=== PATIENT | male | born 1945 | race Caucasian/White ===

== ENCOUNTER → 2016-10-03 | Day surgery (SDC) | payer MEDICARE | END | disposition home or self-care (01) | LOC: SDC 09:38 | DX: C67.9 Malignant neoplasm of bladder, unspecified (principal); Z85.828 Personal history of other malignant neoplasm of skin; Z87.442 Personal history of urinary calculi; Z79.02 Long term (current) use of antithrombotics/antiplatelets; Z79.899 Other long term (current) drug therapy; Z79.51 Long term (current) use of inhaled steroids; Z88.8 Allergy status to other drugs, medicaments and biological substances | CPT/HCPCS: J9031 ==

== ENCOUNTER → 2016-10-10 | Day surgery (SDC) | payer MEDICARE | END | disposition home or self-care (01) | LOC: SDC 09:28 | DX: C67.9 Malignant neoplasm of bladder, unspecified (principal); Z85.828 Personal history of other malignant neoplasm of skin; Z87.442 Personal history of urinary calculi; Z88.8 Allergy status to other drugs, medicaments and biological substances; Z79.899 Other long term (current) drug therapy; Z98.890 Other specified postprocedural states | CPT/HCPCS: J9031 ==